=== PATIENT | female | born 1985 | race Hispanic/Latino ===

== ENCOUNTER 2017-06-09 08:50 | Day surgery (SDC) | payer BC ==
[2017-06-02 14:19] VITALS: BMI 21.6
[2017-06-09 09:54] LABS: HEMOGLOBIN 13.3 g/dL (12.0-16.0); MEAN CELL VOLUME 92.1 fl (81.0-99.0); MEAN CORPUSCULAR HEMOGLOBIN 32.2 pg (27.0-31.0); RBC 4.13 Mil/uL (3.80-5.20); RED CELL DISTRIBUTION WIDTH 12.4 % (11.5-14.5); WHITE BLOOD COUNT 5.4 K/uL (4.8-10.8)
[2017-06-09] MEDS ORDERED: ePHEDrine 50 mg/ml Inj ONE (11:40)
[2017-06-09] MEDS ORDERED: Rocuronium 10 mg/ml (5 ml) ONE ×2 (13:13→15:16)
[2017-06-09] MEDS ORDERED: Midazolam 2 MG/2 ML VIAL ONE (13:13)
[2017-06-09] MEDS ORDERED: Propofol 10 mg/ml Inj (20 ML) ONE ×2 (13:13→15:31)
[2017-06-09] MEDS ORDERED: Succinylcholine 200 mg/10 ml Inj IV ONE (13:14)
[2017-06-09] MEDS ORDERED: Lidocaine 4% (Laryng-O-Jet) Kit MM ONE (13:15)
[2017-06-09] MEDS ORDERED: Bupivacaine 0.5% Inj(30mL) ONE (13:34)
[2017-06-09] MEDS ORDERED: Lactated Ringer's 1,000 ML IV ONE ×2 (14:05→14:10)
[2017-06-09] MEDS ORDERED: Bupivacaine 0.5% 50 ML IJ ONE ×3 (14:23→15:34)
[2017-06-09] MEDS ORDERED: Desflurane Inhalation Anesthetic Liq (240 ml) ONE (14:30)
[2017-06-09] MEDS ORDERED: Dexamethasone 4 mg/1 ml ONE (14:42)
[2017-06-09] MEDS ORDERED: Oxycodone/Acetaminophen 5/325 mg Tab PO PRN (15:49)
--- NOTE | 2017-06-09 15:52 | PCM.SURG1 ---
<Kyleigh Steiner - Last Filed: 06/09/17 15:50> Surgeon's Initial Post Op Note - Surgeon's Notes Surgeon: Reyes Osborne MD Carpet Jack: Cynthia Witt MD, Rupal Steiner PA-C Type of Anesthesia: General Endo Anesthesia Administered By: Dr. Macias Pre-Operative Diagnosis: Endometriosis Operative Findings: see full report Post-Operative Diagnosis: same Operation Performed: Robotically assisted laparoscopic excision of endometriosis with ablation Specimen/Specimens Removed: endometriosis Estimated Blood Loss: EBL {In ML}: 10 Blood Products Given: N/A Drains Used: No Drains Post-Op Condition: Fair Date of Surgery/Procedure: 06/09/17 Time of Surgery/Procedure: 15:52 <Octavio Osborne - Last Filed: 06/10/17 10:43> Surgeon's Initial Post Op Note - Surgeon's Notes Operation Performed: left ureterolysis, lysis of adhesions Specimen/Specimens Removed: endometriosis of ovarian fossa left and left periureteral
[2017-06-10 08:36] VITALS: BP 93/62; PULSE 76; RESP 18; TEMP 98.2; O2SAT 99
--- NOTE | 2017-06-10 09:36 | CP.PCM.PN ---
Subjective - Date & Time of Evaluation Date of Evaluation: 06/10/17 Time of Evaluation: 09:33 - Subjective Subjective: Patient states nausea has resolved. She is eating bagel now and is feeling better. pain is controlled. +void, +OOB +passing gas. She is complaining of B shoulder gas pain Objective - Vital Signs/Intake and Output Vital Signs (last 24 hours): Temp Pulse Resp BP Pulse Ox 98.2 F 76 18 93/62 L 99 06/10/17 08:36 06/10/17 08:36 06/10/17 08:36 06/10/17 08:36 06/10/17 08:36 - Medications Medications: Current Medications Ondansetron HCl (Zofran Inj) 4 mg IVP Q4 PRN PRN Reason: Nausea/Vomiting Last Admin: 06/09/17 20:42 Dose: 4 mg Oxycodone/Acetaminophen (Percocet 5/325 Mg Tab) 1 tab PO Q4 PRN PRN Reason: Pain, moderate (4-7) Stop: 06/12/17 15:50 Last Admin: 06/10/17 01:02 Dose: 1 tab - Labs Labs: 06/09/17 09:44 - Constitutional Appears: Well, No Acute Distress - GI/Abdominal Exam GI & Abdominal Exam: Normal Bowel Sounds Additional comments: mildly distended, incisions intact, dry, abd soft, mildly tender Assessment and Plan (1) Endometriosis Assessment & Plan: POD#1 s/p robotic assisted laparoscopic excision and ablation of endometriosis d/c home today rx as per Dr Osborne, take pain meds with food colace while taking pain medication encourage OOB keep incisions clean and dry f/u as per Dr. Osborne d/w Dr. Osborne, agrees with above Status: Acute
--- NOTE | 2017-06-10 12:27 | OP ---
PROCEDURE DATE: 06/09/2017 PREOPERATIVE DIAGNOSES: Pelvic pain, pelvic adhesions, history of endometriosis, dyspareunia, dysmenorrhea. POSTOPERATIVE DIAGNOSES: Pelvic pain, pelvic adhesions, history of endometriosis, dyspareunia, dysmenorrhea, and pelvic congestion. SURGERY PERFORMED: Robotic laparoscopy, lysis of adhesions, excision of endometriosis, ablation of endometriosis, left ureterolysis. SURGEON: Octavio Osborne MD MAINTENANCE MECHANIC TECHNICIAN: Ronaldo Witt MD TYPE OF ANESTHESIA: General endotracheal. ANESTHESIOLOGIST: Dr. Macias. COMPLICATIONS: None. ESTIMATED BLOOD LOSS: Minimal. INDICATION FOR PROCEDURE: This patient is a 32-year-old with a very long history of pelvic pain. She had a prior laparoscopy that confirmed presence of endometriosis. She also had a complicated that resulted in a uterine rupture and severe bleeding hemorrhage requiring multiple blood transfusion. Subsequently, she had a small bowel obstruction that required surgical resolution with a laparoscopy. The patient now has persistent pain, which has been ongoing and getting worse. An evaluation in the office revealed a large collection of fluid in the pelvis and because of all the fluid in the pelvis, I was able to visualize pelvic adhesion involving both rectum as well as the ovaries and the posterior aspect of the uterus. Prior to surgery, the patient was counseled with regards to the risk and benefits of the procedure. I deemed this procedure riskier because of the clear evidence of extensive pelvic congestion as documented by Doppler ultrasounds. The patient signed the consent and affirmed a desire to move forward with the surgery and was taken to the OR. DESCRIPTION OF PROCEDURE: After adequate anesthesia was obtained, the patient was placed in a dorsal lithotomy position and she was prepped and draped. The surgeons were gowned and gloved. At this point, an open laparoscopy was performed by making an incision on the skin and given the high risk of potential adhesions, an open laparoscopy was performed all the way down to the peritoneum, which was entered in a blunt fashion. The surgeon exploring finger was placed to make sure there was no underlying adhesions or bowel adhesions and a cannula was placed. The abdomen was insufflated and the pelvis was visualized appearing to have clear signs of inflammatory changes especially on the surface of the uterus as well as significant evidence of endometriosis. She had a large nodule in the left posterior sidewall, which was deep invasive. Otherwise, the pelvis revealed presence of significant pelvic congestion. Her left gonadal vein was extremely dilated, and she also had multiple tributary to the left gonadal vein, which were also very enlarged. At this point, the upper abdomen was also explored, appearing to be normal. She seemed to be relatively free of adhesions in the intestinal side and the whole rest of the abdomen was explored appearing to be clear. The additional ports were then inserted, right upper quadrant, left mid quadrant and left upper quadrant and the da Ventura Xi robot was then docked. A Marin was placed in the bladder. Attention first was on a large band of adhesion that was there between the colon and posterior aspect of the uterus, which was excised the epiploic appendix from the posterior aspect of the uterus. This adhesion created a pocket where fluid accumulated in the pelvis. At this point, the left ovary appeared to have a clear cyst on it which was not an endometrioma. The cyst was drained and the left ovary elevated. A large area of endometriosis nodule of about 5 x 3 cm was in the left ovarian fossa and it was progressively excised. This was a slightly difficulty excision because of the massive venous plexus that were all over the left pelvic side wall. In any case, this was dissected without any complications and sent to pathology. An additional area of endometriosis was in the left. Overlying the left ureter, the peritoneum was then entered and the left ureter lateralized. It was identified by vermiculation and an area of endometriosis was excised from the left pelvic side wall in a [id number] fashion, avoiding injuring ureter. At this point, the plasma jet helium device was brought in and all the inflammatory lesions, on the posterior aspect of the uterus on the surface of the uterus and the cul-de-sac was extensively ablated in a methodical process with great care to avoid any damage to vital structures. Once this part of the procedure was performed, the pelvis was irrigated, it was checked for hemostasis and appeared to be excellent. The da Ventura robot was detached. The instruments were removed and the abdomen carefully desufflated. Incisions were closed in layers with 0-PDS for the fascia and 4-0 Monocryl for the skin. At the end of the procedure, all tapes and instrument counts were correct. The patient tolerated the procedure well, was taken to recovery room in excellent condition. Octavio Osborne MD [facility] # [id number]
== END 2017-06-10 11:30 | disposition home or self-care (01) ==
LOC: H.OPSURG 08:50 → H.PEDS 20:31 → H.OPSURG 06-10 11:30
PROVIDERS: ATTEND Obstetrics & Gynecology Reproductive Endocrinology
DX: N80.0 Endometriosis of uterus (principal); R10.2 Pelvic and perineal pain; N94.6 Dysmenorrhea, unspecified; N73.6 Female pelvic peritoneal adhesions (postinfective)
CPT/HCPCS: 36415; 49329; 53899; 58662; 85027; 86850; 86900; 88305; C1729; J0330; J0690; J1100; J1170; J2001; J2250; J2405; J2704; J2765; J3010; J7030; J7040; J7120